=== PATIENT | female | born 1970 | race African-American/Black ===

== ENCOUNTER 2016-06-08 08:44 | Emergency (ER) | payer MEDICAID, OTHER ==
[~2016-06-08] VITALS: Ht 165.1 cm; Wt 75.0 kg
[~2016-06-08 08:44] MED LIST: IBUP600 PO
[2016-06-08 08:46] VITALS: BP 140/64; PULSE 75; RESP 15; TEMP 98.2; O2SAT 99
[2016-06-08] MEDS ORDERED: SODIUM CHLOR 0.9% 1000 ML INJ 1,000 ML IV SCH (09:18)
[2016-06-08] MEDS ORDERED: SODIUM CHLORIDE 0.9% FLUSH 5 ML FLUSH IVF PRN (09:30)
[2016-06-08 09:55] LABS: AUTOMATED NEUTROPHIL # 3.4 TH/MM3 (1.8-7.7); BASOPHIL % 0.4 % (0.0-2.0); EOSINOPHIL % 0.3 % (0.0-4.0); HEMATOCRIT 35.4 % (35.0-46.0); LYMPH % 30.7 % (9.0-44.0); LYMPHOCYTE # 1.8 TH/MM3 (1.0-4.8); MEAN CELL VOLUME 78.4 FL (80.0-100.0); MEAN CORPUSCULAR HEMOGLOBIN 24.4 PG (27.0-34.0); MEAN CORPUSCULAR HGB CONC 31.1 % (32.0-36.0); MONO % 11.9 % (0.0-8.0); NEUT % 56.7 % (16.0-70.0); PLATELET COUNT 206 TH/MM3 (150-450); RED BLOOD COUNT 4.51 MIL/MM3 (4.00-5.30); RED CELL DISTRIBUTION WIDTH 14.1 % (11.6-17.2); WHITE BLOOD COUNT 5.9 TH/MM3 (4.0-11.0)
[2016-06-08 09:57] LABS: HEMO FLAGS AUTO DIFF
[2016-06-08 10:03] LABS: APTT (PATIENT) 27.8 SEC (24.3-30.1); PROTHROMBIN TIME - PATIENT 10.5 SEC (9.8-11.6)
[2016-06-08 10:17] VITALS: O2SAT 99
[2016-06-08 10:19] LABS: ALKALINE PHOSPHATASE 121 U/L (45-117); BETA HCG QUANT 215 MIU/ML (0-5); TOTAL BILIRUBIN ADULT 0.6 MG/DL (0.2-1.0)
[2016-06-08 10:30] LABS: OVALOCYTES 1+ (NORMAL); SCAN/DIFF AUTO DIFF CONFIRMED; TEARDROP RBCS 1+ (NORMAL)
[2016-06-08 10:42] LABS: ALT (GPT) 20 U/L (10-53); ANION GAP 9 MEQ/L (5-15); AST (GOT) 26 U/L (15-37); BICARBONATE 24.3 MEQ/L (21.0-32.0); BLOOD UREA NITROGEN 7 MG/DL (7-18); CHLORIDE 105 MEQ/L (98-107); GLOMERULAR FILTRATION RATE 127 ML/MIN (>89); POTASSIUM 3.7 MEQ/L (3.5-5.1); SODIUM (NA) 138 MEQ/L (136-145)
[2016-06-08 11:34] VITALS: BP 128/58; PULSE 78; RESP 20; O2SAT 99
[2016-06-08] MEDS ORDERED: ONDANSETRON HCL 4 MG/2 ML VIAL IV PUSH ONE (11:45)
[2016-06-08] MEDS ORDERED: SODIUM CHLOR 0.9% 1000 ML INJ 1,000 ML IV ONE (11:45)
[2016-06-08] MEDS ORDERED: MORPHINE SULFATE 4 MG/ML INJ IV PUSH ONE (11:45)
[2016-06-08 12:44] VITALS: BP 122/74; PULSE 78; RESP 20; O2SAT 99
--- NOTE | 2016-06-08 13:32 | RADRPT ---
EXAM DATE/TIME: 06/08/2016 12:27 This report includes an Addendum and supersedes previous reports for this exam. [place] COMPARISON: No previous studies available for comparison. INDICATIONS : Pelvic pain and heavy vaginal bleeding. LAB(S): Beta-hC MEDICAL HISTORY : . Ectopic . SURGICAL HISTORY : Ectopic removed 2004. Dilation and curettage. ENCOUNTER: Initial ACUITY: 2 days PAIN SCORE: 6/10 LOCATION: Bilateral pelvis MEASUREMENTS: UTERUS: 15.8 x 8.2 x 8.6 cm ENDOMETRIAL STRIPE: 20 mm RIGHT OVARY: 2.1 x 2.1 x 2.0 cm LEFT OVARY: 3.4 x 1.9 x 2.8 cm cm FINDINGS: UTERUS: Enlarged and heterogeneous uterus with 3 hypoechoic solid appearing mass is identified. One located i n the right uterine body measures 2.7 cm, another in the right lower uterine segment anteriorly measu res 1.4 cm and a third in the mid uterine body anteriorly measures 2.0 cm. There is trace ovoid area of fluid within the endometrial cavity it appears somewhat centrally located. Otherwise, no gestation al sac is visualized. There is trace fluid in the endocervical canal and vagina. RIGHT OVARY: Ovary contains no mass or significant cystic lesion. LEFT OVARY: Ovary contains no mass or significant cystic lesion. MISCELLANEOUS: There is trace free fluid in the posterior cul-de-sac. CONCLUSION: 1. Tiny fluid collection in the endometrium could represent a small gestational sac. However, this ca nnot be confirmed with confidence. Therefore, this is considered of unknown location. Sugge st followup beta-hCG she values and followup ultrasound, as clinically needed, to ensure appropriate progression of . 2. Enlarged heterogeneous uterus containing 3 solid masses measuring up to 2.7 cm with features jon cteristic of intramural leiomyomas. 3. Trace free fluid in the pelvis. Holden Ramirez MD on June 08, 2016 at 13:26 Board Certified Radiologist. This report was verified electronically. ADDENDUM: It was brought to my attention that the patient had a recent miscarriage. The endometrium is thickene d and very heterogeneous but no internal color flow is visualized to suggest retained products of con ception. This may represent blood products. Holden Ramirez MD on June 08, 2016 at 14:08 Board Certified Radiologist. This report was verified electronically.
--- NOTE | 2016-06-08 13:45 | PD ---
Data Data Last Documented VS Vital Signs Date Time Temp Pulse Resp B/P Pulse Ox O2 Delivery O2 Flow Rate FiO2 06/08/16 12:44 78 20 122/74 99 06/08/16 10:17 Room Air 06/08/16 08:46 98.2 Orders Ed Urine Pregnancytest Poc (06/08/16 08:56) Beta Hcg (Quant/Titer) (06/08/16 09:18) Complete Blood Count With Diff (06/08/16 09:18) Comprehensive Metabolic Panel (06/08/16 09:18) Prothrombin Time / Inr (Pt) (06/08/16 09:18) Act Partial Throm Time (Ptt) (06/08/16 09:18) Iv Access Insert/Monitor (06/08/16 09:18) Ecg Monitoring (06/08/16 09:18) Oximetry (06/08/16 09:18) Sodium Chlor 0.9% 1000 Ml Inj (Ns 1000 M (06/08/16 09:18) Sodium Chloride 0.9% Flush (Ns Flush) (06/08/16 09:30) Abo/Rh Blood Type (06/08/16 09:18) Us Pelvis (Ques Preg/Ectopic) (06/08/16 09:43) Ed Poc Ultrasound (06/08/16 ) Morphine Inj (Morphine Inj) (06/08/16 11:45) Ondansetron Inj (Zofran Inj) (06/08/16 11:45) Sodium Chlor 0.9% 1000 Ml Inj (Ns 1000 M (06/08/16 11:45) Labs Laboratory Tests Test 06/08/16 09:10 White Blood Count 5.9 TH/MM3 Red Blood Count 4.51 MIL/MM3 Hemoglobin 11.0 GM/DL Hematocrit 35.4 % Mean Corpuscular Volume 78.4 FL Mean Corpuscular Hemoglobin 24.4 PG Mean Corpuscular Hemoglobin 31.1 % Concent Red Cell Distribution Width 14.1 % Platelet Count 206 TH/MM3 Mean Platelet Volume 8.7 FL Neutrophils (%) (Auto) 56.7 % Lymphocytes (%) (Auto) 30.7 % Monocytes (%) (Auto) 11.9 % Eosinophils (%) (Auto) 0.3 % Basophils (%) (Auto) 0.4 % Neutrophils # (Auto) 3.4 TH/MM3 Lymphocytes # (Auto) 1.8 TH/MM3 Monocytes # (Auto) 0.7 TH/MM3 Eosinophils # (Auto) 0.0 TH/MM3 Basophils # (Auto) 0.0 TH/MM3 CBC Comment AUTO DIFF Differential Comment AUTO DIFF CONFIRMED Tear Drop Cells 1+ Ovalocytes 1+ Prothrombin Time 10.5 SEC Prothromb Time International 1.0 RATIO Ratio Activated Partial 27.8 SEC Thromboplast Time Sodium Level 138 MEQ/L Potassium Level 3.7 MEQ/L Chloride Level 105 MEQ/L Carbon Dioxide Level 24.3 MEQ/L Anion Gap 9 MEQ/L Blood Urea Nitrogen 7 MG/DL Creatinine 0.62 MG/DL Estimat Glomerular Filtration 127 ML/MIN Rate Random Glucose 75 MG/DL Calcium Level 8.2 MG/DL Total Bilirubin 0.6 MG/DL Aspartate Amino Transf 26 U/L (AST/SGOT) Alanine Aminotransferase 20 U/L (ALT/SGPT) Alkaline Phosphatase 121 U/L Total Protein 7.7 GM/DL Albumin 3.0 GM/DL Human Chorionic Gonadotropin, 215 MIU/ML Quant Blood Type B POSITIVE MDM Diagnosis Primary Impression: Spontaneous Referrals: Tariq Retana MD Additional Instruction: Nothing in the vagina for 6 weeks. Return to the emergency department if your bleeding becomes heavier or you experience lightheadedness. If you experience any fevers return to the emergency department. Follow-up with a syrup mixer assistant as soon as possible. Scripts No Active Prescriptions or Reported Meds Disposition: 01 DISCHARGE HOME Condition: Stable Avtar Chavez MD Jun 08, 2016 13:45 Avtar Chavez MD Jun 08, 2016 13:45
--- NOTE | 2016-06-10 10:03 | PD ---
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 Symptoms since last night. Patient states soaking several pads since then. Denies lightheadedness. SHe is afraid she is having a miscarriage. Minimal superpubic abdominal cramping. PFSH Past Medical History Diminished Hearing: No Immunizations Current: Yes ?: : 6 Para: 4 Miscarriage: 1 Ectopic : Yes Past Surgical History Gynecologic Surgery: Yes (ECTOPIC ) Social History Alcohol Use: No Tobacco Use: No Substance Use: No Allergies-Medications (Allergen,Severity, Reaction): Coded Allergies: Penicillin (Unverified Allergy, Mild, Swelling, 06/08/16) Reported Meds & Prescriptions Reported Meds & Active Scripts Active No Active Prescriptions or Reported Medications Review of Systems Except as stated in HPI: all other systems reviewed are Neg Physical Exam Narrative GENERAL: WD/WN in nad. SKIN: Warm and dry. HEAD: Atraumatic. Normocephalic. EYES: Pupils equal and round. No scleral icterus. No injection or drainage. ENT: No nasal bleeding or discharge. Mucous membranes pink and moist. NECK: Trachea midline. No JVD. CARDIOVASCULAR: Regular rate and rhythm. RESPIRATORY: No accessory muscle use. Clear to auscultation. Breath sounds equal bilaterally. GASTROINTESTINAL: Abdomen soft, non-tender, nondistended. Hepatic and splenic margins not palpable. : There is a gestational sac a little bigger than a baseball protruding from the introitus. There is minimal bleeding. With the assistance of one of my colleagues it was delivered completely and intact. Placed in specimen bin. Patient was then examined internally and no tears seen, minimal uterine bleeding from cervical os. Uterus is contracted down on bimanual exam and no adenexal tenderness. Female nurse electromechanic present at all times. MUSCULOSKELETAL: Extremities without clubbing, cyanosis, or edema. No obvious deformities. NEUROLOGICAL: Awake and alert. No obvious cranial nerve deficits. Motor grossly within normal limits. Five out of 5 muscle strength in the arms and legs. Normal speech. PSYCHIATRIC: Appropriate mood and affect; insight and judgment normal. Data Data Last Documented VS Vital Signs Date Time Temp Pulse Resp B/P Pulse Ox O2 Delivery O2 Flow Rate FiO2 06/08/16 12:44 78 20 122/74 99 06/08/16 10:17 Room Air 06/08/16 08:46 98.2 Orders Ed Urine Pregnancytest Poc (06/08/16 08:56) Beta Hcg (Quant/Titer) (06/08/16 09:18) Complete Blood Count With Diff (06/08/16 09:18) Comprehensive Metabolic Panel (06/08/16 09:18) Prothrombin Time / Inr (Pt) (06/08/16 09:18) Act Partial Throm Time (Ptt) (06/08/16 09:18) Iv Access Insert/Monitor (06/08/16 09:18) Ecg Monitoring (06/08/16 09:18) Oximetry (06/08/16 09:18) Sodium Chlor 0.9% 1000 Ml Inj (Ns 1000 M (06/08/16 09:18) Sodium Chloride 0.9% Flush (Ns Flush) (06/08/16 09:30) Abo/Rh Blood Type (06/08/16 09:18) Us Pelvis (Ques Preg/Ectopic) (06/08/16 09:43) Ed Poc Ultrasound (06/08/16 ) Morphine Inj (Morphine Inj) (06/08/16 11:45) Ondansetron Inj (Zofran Inj) (06/08/16 11:45) Sodium Chlor 0.9% 1000 Ml Inj (Ns 1000 M (06/08/16 11:45) Labs Laboratory Tests Test 06/08/16 09:10 White Blood Count 5.9 TH/MM3 Red Blood Count 4.51 MIL/MM3 Hemoglobin 11.0 GM/DL Hematocrit 35.4 % Mean Corpuscular Volume 78.4 FL Mean Corpuscular Hemoglobin 24.4 PG Mean Corpuscular Hemoglobin 31.1 % Concent Red Cell Distribution Width 14.1 % Platelet Count 206 TH/MM3 Mean Platelet Volume 8.7 FL Neutrophils (%) (Auto) 56.7 % Lymphocytes (%) (Auto) 30.7 % Monocytes (%) (Auto) 11.9 % Eosinophils (%) (Auto) 0.3 % Basophils (%) (Auto) 0.4 % Neutrophils # (Auto) 3.4 TH/MM3 Lymphocytes # (Auto) 1.8 TH/MM3 Monocytes # (Auto) 0.7 TH/MM3 Eosinophils # (Auto) 0.0 TH/MM3 Basophils # (Auto) 0.0 TH/MM3 CBC Comment AUTO DIFF Differential Comment AUTO DIFF CONFIRMED Tear Drop Cells 1+ Ovalocytes 1+ Prothrombin Time 10.5 SEC Prothromb Time International 1.0 RATIO Ratio Activated Partial 27.8 SEC Thromboplast Time Sodium Level 138 MEQ/L Potassium Level 3.7 MEQ/L Chloride Level 105 MEQ/L Carbon Dioxide Level 24.3 MEQ/L Anion Gap 9 MEQ/L Blood Urea Nitrogen 7 MG/DL Creatinine 0.62 MG/DL Estimat Glomerular Filtration 127 ML/MIN Rate Random Glucose 75 MG/DL Calcium Level 8.2 MG/DL Total Bilirubin 0.6 MG/DL Aspartate Amino Transf 26 U/L (AST/SGOT) Alanine Aminotransferase 20 U/L (ALT/SGPT) Alkaline Phosphatase 121 U/L Total Protein 7.7 GM/DL Albumin 3.0 GM/DL Human Chorionic Gonadotropin, 215 MIU/ML Quant Blood Type B POSITIVE [facility] Medical Decision Making Medical Screen Exam Complete: Yes Emergency Medical Condition: Yes Differential Diagnosis Completed spontaneous miscarriage, RH incompatibility, anemia, retained products of conception. Narrative Course Patient was roomed in ED, miscarriage of a baseball-sized gestational sac in ED. It was sent to pathology. Patient was observed in ED. Rh pos. Minimal anemia but VS remain stable. US shows some clot still in uterus. Bleeding continues to slow in ED. Discussed symptomatic management and return to ED criteria. Follow up instructions. Patient was counseled and consoled. Diagnosis Primary Impression: Spontaneous Referrals: Tariq Retana MD Patient Instructions: General Instructions Departure Forms: Tests/Procedures Additional Instructions: Nothing in the vagina for 6 weeks. Return to the emergency department if your bleeding becomes heavier or you experience lightheadedness. If you experience any fevers return to the emergency department. Follow-up with a sugar cane planting equipment operator as soon as possible. Scripts No Active Prescriptions or Reported Meds Disposition: 01 DISCHARGE HOME Condition: Stable Avtar Chavez MD Jun 10, 2016 10:03
== END 2016-06-08 14:20 | disposition home or self-care (01) ==
LOC: NEPA 08:44
DX: O03.9 Complete or unspecified spontaneous abortion without complication (principal)
CPT/HCPCS: 76700; 80053; 84702; 84703; 85025; 85610; 85730; 86900; 86901; 88300; 88305; 96374; 96375; 99284; J2270; J2405; J7030